=== PATIENT | female | born 1980 | race Caucasian/White ===

== ENCOUNTER 2021-02-24 12:34 | Emergency (ER) | payer MEDICAID, OTHER, SELFPAY ==
--- NOTE | ~2021-02-24 | XR_ITS ---
EXAMINATION: XR WRIST, LEFT CLINICAL INFORMATION: Fall, trauma, pain all over COMPARISON: None TECHNIQUE: PA, lateral, and oblique views of the left wrist. FINDINGS: The bones and soft tissues are normal. No fracture. Alignment is anatomic with normal joint spaces. No erosions or abnormal soft tissue calcifications. XR/XR wrist LT min 3V IMPRESSION: Normal left wrist.
[2021-02-24 13:07] VITALS: BP 144/99; PULSE 87; RESP 19; TEMP 37.1; O2SAT 99; BMI 34.7
--- NOTE | 2021-02-24 13:17 | ED.GENADULT ---
HPI - General Adult General Chief complaint: Fall Stated complaint: FALL Time Seen by Provider: 02/24/21 13:16 Source: patient Limitations: no limitations History of Present Illness HPI narrative: Patient complaining of left wrist pain right lower back pain and right leg pain. Patient states she slipped and fell on Thursday. Patient grabbed onto the freezer with her left hand is now complaining of wrist pain that increases with range of motion or palpation. Patient feels she also pulled a muscle in her right leg and lower back. Pain is 7/10 no relief with [id number] medications no other complaints this time symptoms are [id number]. Related Data Previous Rx's Medication Instructions Recorded methocarbamol 750 mg PO TID PRN #20 tab 02/24/21 naproxen 500 mg PO BID PRN #30 tab 02/24/21 Allergies Allergy/AdvReac Type Severity Reaction Status Date / Time No Known Allergies Allergy Unverified 05/03/20 16:39 Review of Systems Constitutional: Constitutional: Denies chills, Denies fever(s), Denies headache(s) and Denies weakness ENT: Denies headache(s) Cardiovascular: Cardiovascular: Denies chest pain and Denies dyspnea Respiratory: Respiratory: Denies cough and Denies dyspnea Gastrointestinal: Gastrointestinal: Denies nausea and Denies vomiting Musculoskeletal: Comments: Left wrist pain Lower back pain Right leg pain Neurologic: Denies headache(s) and Denies weakness Psychiatric: Psychiatric: Denies anxiety Allergic/Immunologic: Allergic/Immunologic: Reports no additional allergic/immunologic complaints PMFSH Past Medical History Attestation statement: The following information was validated with the patient. Medical History Anxiety Social History Social History Advance Directives: Yes Advance Directives Information Provided: No Advance Directives on File: No Patient : No Physical Exam Vital Signs: Vital Signs: Last Vital Signs Temp 98.7 F 02/24/21 13:07 Pulse 87 02/24/21 13:07 Resp 19 02/24/21 13:07 BP 144/99 H 02/24/21 13:07 Pulse Ox 99 02/24/21 13:07 Body Mass Index 34.7 vital signs have been reviewed as normal and appeared to be correct. Blood pressure normal. Heart rate normal. Respiration rate normal. Temperature normal. Oxygen saturation normal. Appearance: Alert. Oriented X3. No acute distress. Head: Normal external exam. Eyes: PERRLA. EOMI. ENT: Pharynx normal. Uvula midline. Moist mucous membranes. Neck: Soft full range of motion, no JVD CVS: Heart regular rate and rhythm no murmurs and rubs Respiratory: Breath sounds are clear to auscultation bilaterally. No accessory muscle use noted. Back: Lumbar paraspinal muscle tenderness on the right no midline tenderness Skin: Skin warm and dry. Normal skin color. No ecchymosis noted Extremities: Left wrist tenderness distal radial ulna no deformity noted positive pulses positive sensation Neuro: Oriented X 3. No motor deficit. No sensory deficit. Reflexes normal. Course Course Course Narrative: Left wrist fracture Left wrist sprain Right leg muscle strain Lumbar strain X-ray left wrist pending x-rays negative symptoms consistent with left wrist sprain versus contusion rest ice elevation will be given instructions to the patient. Wrist splint Medical Decision Making Imaging Data Wrist: Radiologist's impression: [address] [id number] ReportSigned Patient: Oscar Mcbride#: [id number]: 1980Acct:[id number]/Sex: 40 / FADM Date: 02/24/21Loc: [email or web address].EDAttending Dr: Ordering Physician: Ottoniel Jaime Date of Service: 02/24/21 Procedure(s): XR wrist LT min 3V Accession Number(s): [id number] cc: Ottoniel Jaime ~ EXAMINATION: XR WRIST, LEFT CLINICAL INFORMATION: Fall, trauma, pain all over COMPARISON: None TECHNIQUE: PA, lateral, and oblique views of the left wrist. FINDINGS: The bones and soft tissues are normal. No fracture. Alignment is anatomic with normal joint spaces. No erosions or abnormal soft tissue calcifications. XR/XR wrist LT min 3V IMPRESSION: Normal left wrist. Dictated By:MARY GAINES MDSigned By:<Electronically signed by MARY GAINES MD in OV>02/24/21 1328 DD/ 1316TD/TT: Casino Accountant: PN Discharge Plan Discharge Clinical Impression: Sprain of left wrist, Muscle strain Patient Disposition: Home, Self-Care Instructions: Wrist Sprain (ED) Additional Instructions: X-ray is normal Rest ice elevation Prescriptions: New naproxen 500 mg tablet 500 mg PO BID PRN (Reason: pain) Qty: 30 RF: 0 methocarbamol 750 mg tablet 750 mg PO TID PRN (Reason: muscle spasm) Qty: 20 RF: 0
== END 2021-02-24 13:46 | disposition home or self-care (01) ==
PROVIDERS: Emergency Provider Emergency Medicine
DX: S63.502A Unspecified sprain of left wrist, initial encounter (principal); T14.8XXA Other injury of unspecified body region, initial encounter; M54.5 Low back pain; M79.604 Pain in right leg; W01.0XXA Fall on same level from slipping, tripping and stumbling without subsequent striking against object, initial encounter; Y93.9 Activity, unspecified; Y92.9 Unspecified place or not applicable; Y99.9 Unspecified external cause status
CPT/HCPCS: 73110; 99283

== ENCOUNTER 2021-04-18 23:25 | Emergency (ER) | payer MEDICAID, SELFPAY ==
--- NOTE | ~2021-04-18 | XR_ITS ---
EXAMINATION: XR CHEST CLINICAL INFORMATION: Shortness of breath COMPARISON: Chest x-ray 02/24/2017 TECHNIQUE: Frontal portable view of the chest was obtained. 1:27 AM FINDINGS: No significant abnormality is noted involving the heart, lungs, mediastinum, bony thorax or soft tissues. XR/XR chest 1V IMPRESSION: Unremarkable examination.
[2021-04-18 23:37] VITALS: BP 144/83; PULSE 90; RESP 20; TEMP 36.2; O2SAT 98; BMI 37.6
[2021-04-19 00:04] VITALS: PULSE 94; RESP 24; O2SAT 99
--- NOTE | 2021-04-19 01:18 | ED.URI ---
HPI - URI/Sore Throat General Chief Complaint: Upper Respiratory Symptoms Stated Complaint: asthma, SoB Time Seen by Provider: 04/19/21 00:55 Source: patient Mode of arrival: ambulatory Limitations: no limitations History of Present Illness HPI Narrative: 40-year-old female came in for evaluation of shortness of breath. 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 Patient received vaccination for COVID and had previously contracted COVID 9 months ago. Patient feeling difficulty breathing and wheezing. Related Data Previous Rx's Medication Instructions Recorded methocarbamol 750 mg tablet 750 mg PO TID PRN #20 tab 02/24/21 naproxen 500 mg tablet 500 mg PO BID PRN #30 tab 02/24/21 albuterol sulfate 90 mcg/actuation 1 inh INHALATION Q4-6H PRN #1 ea 04/19/21 breath activated powder inhaler (ProAir RespiClick) prednisone 20 mg tablet 20 mg PO BID #10 tab 04/19/21 Allergies Allergy/AdvReac Type Severity Reaction Status Date / Time No Known Allergies Allergy Verified 04/18/21 23:37 Review of Systems Review of Systems: All other systems are reviewed and are negative Constitutional: Reports as per HPI and Reports no additional constitutional complaints Eyes: Reports as per HPI and Reports no additional eye complaints Reports system reviewed and no additional complaints, except as documented Cardiovascular: Reports as per HPI and Reports no additional cardiovascular complaints Respiratory: Reports as per HPI and Reports no additional respiratory complaints Gastrointestinal: Reports as per HPI and Reports no additional gastrointestinal complaints Genitourinary: Reports no additional female genitourinary complaints Musculoskeletal: Reports no additional musculoskeletal complaints Skin/Breast: Reports system reviewed and no additional complaints, except as docu Psychiatric: Reports no additional psychiatric complaints Endocrine: Reports no additional endocrine complaints Hematologic/Lymphatic: Reports no additional hematologic/lymphatic complaints Allergic/Immunologic: Reports no additional allergic/immunologic complaints Reports system reviewed and no additional complaints, except as documented and Reports Abnormal speech present [facility] Past Medical History Medical History Anxiety Social History Social History Advance Directives: No Advance Directives Information Provided: Yes Patient : No Physical Exam Vital Signs: Vital Signs: Last Vital Signs Temp 97.1 F 04/18/21 23:37 Pulse 94 04/19/21 00:04 Resp 24 H 04/19/21 00:04 BP 144/83 H 04/18/21 23:37 Pulse Ox 99 04/19/21 00:04 Body Mass Index 37.6 Vital signs have been reviewed as appeared to be correct. Blood pressure normal. Heart rate normal. Respiration rate normal. Temperature normal. Oxygen saturation normal. Appearance: Alert. Oriented X3. No acute distress. Head: Normal external exam. Normocephalic. Atraumatic. No Gilmore signs noted. No raccoon eyes noted Eyes: PERRLA. EOMI. Conjunctiva and sclera normal. Eyelids normal. ENT: TM's Normal. Pharynx normal. Uvula midline. Moist mucous membranes. No trismus noted. No drooling noted. No muffled voice noted. Neck: Normal inspection. Neck supple. FROM. No adenopathy. Thyroid Normal. No meningeal signs. No neck mass noted. CVS: Normal heart rate and rhythm. Heart sound normal. No murmurs noted. Pulses normal throughout. Respiratory: No respiratory distress. Painless inspiration. Breath sounds normal. Diffuse expiratory wheezing with prolonged expiration. Chest nontender. No accessory muscle usage noted or decreased air movement noted. Abdomen: Soft and nontender. Bowel sounds normal in all 4 quadrants. No distention noted. No organomegaly noted. No visible injury noted. Back: No CVA tenderness. Full range of motion noted. Skin: Skin warm and dry. Normal skin color. Normal skin turgor. No rashes/lesions/lacerations noted. Extremities: No lower extremity edema. Extremities exhibit normal range of motion. Extremities nontender. Neuro: Oriented X 3. Cranial nerve exam: II-XII are grossly intact No motor deficit. No sensory deficit. Reflexes normal. Course Course Course Narrative: Assessment and plan. 40-year-old came in for shortness of breath and wheezing for with a viral upper respiratory symptoms, patient is negative for COVID, chest x-ray not revealing pneumonia. Will start the patient on prednisone for 5 days and bronchodilator. MDM - URI/Sore Throat Lab Data Attestation: I reviewed the patient's lab results. Labs: Lab Results 04/19/21 Range/Units 01:06 COVID-19 ([facility]) Negative (Negative) COVID-19 Clin Com See Note Discharge Plan Discharge Clinical Impression: Bronchitis Patient Disposition: Home, Self-Care Instructions: Acute Bronchitis (ED) Prescriptions: New prednisone 20 mg tablet 20 mg PO BID Qty: 10 RF: 0 ProAir RespiClick 90 mcg/actuation aerosol powdr breath activated 1 inh inhalation Q4-6H PRN (Reason: shortness of breath or wheezing) Qty: 1 RF: 0 No Action naproxen 500 mg tablet 500 mg PO BID PRN (Reason: pain) Qty: 30 RF: 0 methocarbamol 750 mg tablet 750 mg PO TID PRN (Reason: muscle spasm) Qty: 20 RF: 0 Referrals: Physician,Unknown [Primary Care Provider] - 2 days Stand Alone Forms: Work/School Release
[2021-04-19] MEDS: Albuterol Sulfate (0.083%) 2.5 MG/3 ML VIAL.NEB 5 MG INHALE (01:23)
[2021-04-19] MEDS: Albuterol/Iprat 2.5/0.5MG 3 ML AMPUL.NEB INHALE (01:23)
[2021-04-19 01:27] LABS: COVID-19 Test Negative (Negative); IDNOW Serial# 9DD0AD1C
[2021-04-19] MEDS: Acetaminophen 325 MG TABLET 975 MG PO (01:34)
[2021-04-19] MEDS: predniSONE 20 MG TABLET 40 MG PO (02:24)
== END 2021-04-19 02:36 | disposition home or self-care (01) ==
PROVIDERS: Emergency Provider Emergency Medicine
DX: J40 Bronchitis, not specified as acute or chronic (principal); R06.02 Shortness of breath; Z79.899 Other long term (current) drug therapy; Z20.822 Contact with and (suspected) exposure to COVID-19
CPT/HCPCS: 36415; 71045; 87635; 94644; 99284